=== PATIENT | male | born 1975 | race Caucasian/White ===

== ENCOUNTER 2016-08-01 13:51 | Emergency (ER) | payer OTHER ==
[~2016-08-01] VITALS: Ht 185.4 cm; Wt 136.7 kg
[2016-08-01 13:54] VITALS: TEMP 37.1; O2SAT 96; Ht 185.4 cm; Wt 136.7 kg
[2016-08-01] MEDS ORDERED: GLC/500 PO (14:10)
[2016-08-01] MEDS ORDERED: CEFD300C2 PO (14:35)
[2016-08-01] MEDS ORDERED: HYDR-5688 PO (14:35)
[2016-08-01] MEDS ORDERED: CEFTRIAXONE SOD 350MG/ML 1 GM VIAL IM ONE (14:45)
[2016-08-01 15:03] VITALS: BP 154/94; PULSE 94
--- NOTE | 2016-08-02 22:47 | EMERGENCY ROOM VISIT NOTE ---
History First contact with patient: 14:00 Chief Complaint: FACIAL PAIN/INJURY Stated Complaint: SWELLING TO FACE History of Present Illness The patient is a 41 year old male who presents to the Emergency Room with complaints of left-sided facial pain and swelling for the past few days. The patient believes the discomfort is coming from a left upper molar. He has an appointment with a dentist, but not for several weeks. The patient has not had fever or chills. No recent URI symptoms. He is not having swelling of his tongue or bleeding from the mouth. The patient has not had improvement with ibuprofen and Tylenol at home. He is a diabetic, does not have injury or trauma. Review of Systems More than 10 systems were reviewed and otherwise negative with the exception of history of present illness. Past Medical/Surgical History History of diabetes Family History No pertinent family history Social History Smoking Status: Former Smoker Housing Status: lives with family Current/Historical Medications Scheduled Cefdinir (Omnicef), 300 MG PO Q12H Metformin Hcl (Glucophage), 500 MG PO DAILY Scheduled PRN Hydrocodone/Acetaminophen 5MG/325MG ([place] 5MG/325MG), 1 TABLET PO Q6 PRN for Pain Allergies Coded Allergies: No Known Allergies (Unverified , 08/01/16) Physical Exam Vital Signs Date Time Temp Pulse Resp B/P Pulse Ox O2 Delivery O2 Flow Rate FiO2 08/01/16 15:03 94 20 154/94 08/01/16 13:54 37.1 99 18 162/110 96 Room Air Pain Rating (0-10): 4.0 Physical Exam VITALS: Vitals are noted on the nurse's note and reviewed by myself. Vital signs stable. GENERAL: Well-developed, well-nourished, white male, who is in no acute distress and resting comfortably. Patient is cooperative with the examination. HEAD: There is very slight edema of the left-sided face over the maxillary sinus distribution. There is mild tenderness to percussion in this area. No gross erythema. EARS: External ear normal. External auditory canals clear, tympanic membranes pearly adler without erythema or effusion bilaterally. EYES: Pupils equal round and reactive to light and accommodation. Conjunctivae without injection, sclerae without icterus. Extraocular movements intact. NOSE: Patent, turbinates without inflammation or discharge. MOUTH: Mucous membranes moist. Tonsils are not enlarged. Pharynx without erythema, blood, or exudate. Uvula midline. Airway patent. Dentition overall poor repair. No obvious abscess noted. No ludwigs. NECK: Supple without nuchal rigidity. No lymphadenopathy. No thyromegaly. Cervical spine is nontender. HEART: Regular rate and rhythm without murmurs gallops or rubs. LUNGS: Clear to auscultation bilaterally without wheezes, rales or rhonchi. No retractions or accessory muscle use. Medical Decision & Procedures Medications Administered Medications (Trade) Dose Ordered Sig/Janet Route Start Time Stop Time Status Last Admin Dose Admin Ceftriaxone Sodium (Rocephin Im) 1,000 mg NOW ONCE IM 08/01/16 14:45 08/01/16 14:46 DC 08/01/16 14:46 1,000 MG ED Course Physical exam and history were performed. Nursing notes and EMR were reviewed. Patient appears to have some swelling over the left side of his face for the past few days. On exam I am unsure if he has a distinct dental infection or possible acute sinusitis. If he has a dental infection it is almost certainly related to a left upper tooth. Regardless the patient will need antibiotics, and was given 1 g IM Rocephin. He will be transitioned to Omnicef. Will provide him a course of Vicodin for pain control. The patient should follow with his PCP and dentist for further care and management. He was otherwise invited back to the ER with any new, worsening, or concerning symptoms. The chart was completed utilizing [employer] Voice Recognition Software. Grammatical errors, random word insertions, pronoun errors, and incomplete sentences are an occasional consequence of this system due to software limitations, ambient noise, and hardware issues. Any formal questions or concerns about the content, text, or information contained within the body of this dictation should be directly addressed to the provider for clarification. . Medical Decision Differential diagnosis: Etiologies such as dental pain, sinusitis, Ludwigs, trench mouth, cellulitis, abscess, MRSA infection, DVT, necrotizing fasciitis, dermatitis, drug eruption, as well as others were entertained.. [place] Drug Monitoring Program Search Results: patient reviewed within database, no issues identified Impression Primary Impression: Swelling of left side of face Departure Information Dispostion Home / Self-Care Condition GOOD Prescriptions Cefdinir (OMNICEF) 300 Mg Cap 300 MG PO Q12H for 9 Days, #18 CAP Prov: Calvin Alonso PA-C 08/01/16 Hydrocodone/Acetaminophen 5MG/325MG (Deep [place] 5MG/325MG) Tab 1 TABLET PO Q6 Y for Pain, #12 TAB For Initial Treatment Prov: Calvin Alonso PA-C 08/01/16 Forms HOME CARE DOCUMENTATION FORM, IMPORTANT VISIT INFORMATION Patient Instructions My [facility] Additional Instructions You were seen and evaluated today on an emergency basis only. This is not a substitute for, or an effort to provide, complete comprehensive medical care. It is not possible to recognize and treat all injuries or illnesses in a single emergency department visit. For this reason it is recommended that you followup with Your dentist as scheduled for ongoing care. For baseline pain relief you may alternate ibuprofen and acetaminophen every 4 hours for pain control. Take 600 mg ibuprofen (Advil) and then 4 hours later take 1000 mg acetaminophen (Tylenol). Do not take more than 3000 mg acetaminophen in a single day. Deep Run (hydrocodone/acetaminophen) 5/325 mg every 6 hours as needed for worsening breakthrough pain. Do not drink or drive on [place]. This medication will likely make you tired. Do not take Deep [place] and Tylenol at the same time as both contain acetaminophen. Deep Run may cause constipation. You may wish to take an [id number] stool softener like Colace if this occurs. Take Omnicef 300 mg daily for the next 9 days. Start this medication tomorrow morning. You are welcome to return to the emergency department anytime with new, worsening, or concerning symptoms.
== END 2016-08-01 15:05 | disposition home or self-care (01) ==
LOC: C.EDB 13:53 → C.EDD 15:05
DX: R22.0 Localized swelling, mass and lump, head (principal); E11.9 Type 2 diabetes mellitus without complications; Z79.84 Long term (current) use of oral hypoglycemic drugs

== ENCOUNTER → 2016-08-29 | Outpatient (CLI) | payer OTHER ==
[~2016-08-29] MED LIST: GLC/500 PO; HYDR-5688 PO
[2016-08-29 14:53] LABS: HEMATOCRIT 41.2 % (42-52); MEAN CELL VOLUME 87.3 fL (80-100); MEAN CORPUSCULAR HEMOGLOBIN 29.7 pg (25-34); PLATELET COUNT 363 K/uL (130-400); RED BLOOD COUNT 4.72 M/uL (4.7-6.1); WHITE BLOOD COUNT 8.76 K/uL (4.8-10.8)
[2016-08-29 15:31] LABS: ALT/SGPT 26 U/L (12-78); AST/SGOT 15 U/L (15-37); BLOOD UREA NITROGEN 17 mg/dl (7-18); BUN/CREATININE RATIO 20.9 (10-20); CALCIUM 8.3 mg/dl (8.5-10.1); CARBON DIOXIDE 31 mmol/L (21-32); CHLORIDE 106 mmol/L (98-107); CREATININE 0.82 mg/dl (0.60-1.40); GLUCOSE 92 mg/dl (70-99); POTASSIUM 4.1 mmol/L (3.5-5.1); SODIUM 141 mmol/L (136-145)
[2016-08-29 15:33] LABS: ALB/GLOB RATIO 0.9 (0.9-2); ALKALINE PHOSPHATASE 91 U/L (45-117)
[2016-08-30 07:10] LABS: ESTIMATED AVERAGE GLUCOSE 126 mg/dl; HA1C FLAG Normal (Normal)
== END | disposition home or self-care (01) ==
LOC: C.LABBC 11:49
PROVIDERS: ATTEND Nurse Practitioner Adult Health
DX: R73.09 Other abnormal glucose (principal)

== ENCOUNTER 2017-05-16 15:57 | Emergency (ER) | payer OTHER ==
[~2017-05-16] VITALS: Ht 193 cm; Wt 138.0 kg
[~2017-05-16 15:57] MED LIST changes: -HYDR-5688 PO
[2017-05-16 15:59] VITALS: TEMP 37; Ht 193 cm; Wt 138.0 kg
[2017-05-16] MEDS ORDERED: VNTHFA/IN INH (16:09)
[2017-05-16 16:12] VITALS: O2SAT 96
--- NOTE | 2017-05-16 16:34 | EMERGENCY ROOM VISIT NOTE ---
History First contact with patient: 16:02 Chief Complaint: COUGH Stated Complaint: COUGHING, HEADACHE, LUNG PAIN WHEN COUGHING Nursing Triage Summary: Patient reports cough since . For the past 4 days patient has had pain in left side of his chest with his cough. Per patient :History of early stages of COPD. History of Present Illness The patient is a 42 year old male who presents to the Emergency Room with complaints of cough and pleuritic chest pain for 2 weeks Patient has a PMH significant of COPD, T2DM and tobacco use. He said that the symptoms began with a sore throat and progressed to runny nose, BUSH and cough. He also reports mild subjective fevers periodically over the past 2 weeks. His chest pain is nonexertional, nonradiating and only related to cough. He describes the pain as a pulling sensation between his ribs. Patient has been coughing up yellow sputum, but denies hemoptysis. He also denies leg swelling, recent immobility or h/o DVT or PE. No family history of clotting disorders. Denies history of allergies of asthma. Patient is a smoker. Reports attempting to quit. Review of Systems see below Constitutional: + fever, No chills, No sweats Respiratory: + cough, + sputum, + wheezing, No shortness of breath, No dyspnea on exertion, No hemoptysis Cardiovascular: + chest pain, No orthopnea, No edema, No palpitations Abdomen: No pain, No nausea, No vomiting, No diarrhea Past Medical/Surgical History Medical Problems: (1) COPD (chronic obstructive pulmonary disease) (2) Type 2 diabetes mellitus Social History Smoking Status: Current Some Day Smoker Housing Status: lives with family Current/Historical Medications Scheduled Amoxicillin (Amoxil), 1 CAP PO BID Metformin Hcl (Glucophage), 500 MG PO DAILY Scheduled PRN Albuterol Hfa (Ventolin Hfa), 2 PUFFS INH Q4H PRN for SOB/Wheezing Physical Exam Vital Signs Date Time Temp Pulse Resp B/P (MAP) Pulse Ox O2 Delivery O2 Flow Rate FiO2 05/16/17 16:13 96 05/16/17 16:12 96 Room Air 05/16/17 16:09 95 Room Air 05/16/17 15:59 37.0 101 20 161/132 96 Room Air Physical Exam see below General Appearance: WD/WN, no apparent distress Head: normocephalic, atraumatic Eyes: normal inspection, sclerae normal Neck: supple, no adenopathy Respiratory/Chest: chest non-tender, lungs clear, normal breath sounds, no respiratory distress, no accessory muscle use Cardiovascular: regular rate, rhythm, no edema, no gallop Extremities: no calf tenderness, no pedal edema Neurologic/Psych: alert, normal mood/affect, oriented x 3 Medical Decision & Procedures ED Course 1625 History and physical performed 1641 Order CXR, EKG 1655 Reviewed EKG 1700 Discharged patient Medical Decision 42 male comes into the ED with cough and pleuritic chest pain for 2 weeks Considering the following differential; Pneumonia, Pulmonary Embolism, Pneumothorax, ACS Ordered the following test; EKG, CXR Well's score of 0, low probability of PE. Chest pain is typical for pleuritis or strain from coughing. EKG was unremarkable, NSR, LVH CXR was unremarkable Treating the patient for sinusitis with Amoxicillin 500 mg BID Impression Primary Impression: Sinusitis Departure Information Dispostion Home / Self-Care Prescriptions Amoxicillin (AMOXIL) 500 Mg Cap 1 CAP PO BID for 10 Days, #20 CAP Prov: Kamari Magaña M.D. 05/16/17 Referrals Anna Merlos C.R.N.P. (PCP) Patient Instructions [facility]
--- NOTE | 2017-05-16 16:57 | DIAGNOSTIC IMAGING REPORT ---
CHEST 2 VIEWS ROUTINE CLINICAL HISTORY: Cough. COMPARISON STUDY: Chest radiograph August 20, 2006. FINDINGS: Lung volumes are normal. No pneumothorax or pleural effusion is identified. There is no evidence of pulmonary edema. Cardiac size is within normal limits. There is no consolidation to suggest pneumonia. IMPRESSION: No acute cardiopulmonary findings. Electronically signed by: Mike York M.D. 05/16/2017 4:55 PM Dictated Date/Time: 05/16/2017 4:54 PM
[2017-05-16] MEDS ORDERED: AMOX500C3 PO (17:05)
--- NOTE | 2017-05-16 17:12 | EMERGENCY ROOM VISIT NOTE ---
History Report prepared by Jaxon: Stephan Brannon Under the Supervision of: Dr. Jairo Stoddard M.D. First contact with patient: 16:02 Chief Complaint: COUGH Stated Complaint: COUGHING, HEADACHE, LUNG PAIN WHEN COUGHING History of Present Illness The patient is a 42 year old male who presents to the Emergency Room with complaints of a persistent cough beginning 1.5 weeks ago. The patient's cough produces phlegm. He also complains of left rib pain with coughing, runny nose, sinus pressure, and headache. He developed his chest pain four days ago. The patient's chest pain is not worsened with exertion. He only feels it when he coughs. He feels that he may have had a fever. He denies SOB, black or bloody stool, or bloody vomit. The patient did not have a flu vaccine this year. He has no history of blood clots. He notes that he works for a [employer]. The patient is a smoker. Source of History: patient Onset: 1.5 weeks ago Quality: other (productive cough) Timing: other (persistent) Associated Symptoms: + fevers (subjective), + headache, + chest pain (left rib pain with coughing), No SOB, No melena, No hematochezia Note: Additional symptoms: runny nose and sinus pressure. He denies any bloody vomit. Review of Systems See HPI for pertinent positives & negatives. A total of 10 systems reviewed and were otherwise negative. Past Medical & Surgical Medical Problems: (1) COPD (chronic obstructive pulmonary disease) (2) Type 2 diabetes mellitus Family History No pertinent family history stated. Social History Smoking Status: Current Some Day Smoker Housing Status: lives with family Current/Historical Medications Scheduled Amoxicillin (Amoxil), 1 CAP PO BID Metformin Hcl (Glucophage), 500 MG PO DAILY Scheduled PRN Albuterol Hfa (Ventolin Hfa), 2 PUFFS INH Q4H PRN for SOB/Wheezing Allergies Coded Allergies: No Known Allergies (Unverified , 05/16/17) Physical Exam Vital Signs Date Time Temp Pulse Resp B/P (MAP) Pulse Ox O2 Delivery O2 Flow Rate FiO2 05/16/17 16:13 96 05/16/17 16:12 96 Room Air 05/16/17 16:09 95 Room Air 05/16/17 15:59 37.0 101 20 161/132 96 Room Air Physical Exam Constitutional: Vital signs reviewed. Eyes: Pupils are equal round reactive to light. Conjunctiva are noninjected. ENT: Pharynx is clear without erythema or exudate. Mucous membranes are moist. Neck supple without meningeal signs. Respiratory: Clear to auscultation bilaterally. Breath sounds are equal bilaterally. Cardiovascular: Regular rate and rhythm. No rubs or gallops. GI: Soft, nondistended and nontender. Bowel sounds are present. Musculoskeletal: No peripheral edema. No lower extremity tenderness. Rib tenderness to the left lower ribs. Integumentary: No cyanosis. Neurological: The patient is awake and alert. No focal deficits. Psychiatric: Normal affect. Medical Decision & Procedures ER Provider Diagnostic Interpretation: Radiology results as stated below per my review and the radiologist's interpretation: CHEST 2 VIEWS ROUTINE FINDINGS: Lung volumes are normal. No pneumothorax or pleural effusion is identified. There is no evidence of pulmonary edema. Cardiac size is within normal limits. There is no consolidation to suggest pneumonia. IMPRESSION: No acute cardiopulmonary findings. Electronically signed by: Mike York M.D. 05/16/2017 4:55 PM ECG Indication: other (rib pain) Rate (beats per minute): 95 Rhythm: normal sinus Findings: no acute ischemic change, no ectopy, other (LVH) ED Course 1607: The patient was evaluated in room B9. A complete history and physical exam was performed. 1705: Upon reevaluation, the patient appeared to have improvement of his symptoms. I discussed tonight's findings with him. He verbalized agreement of the treatment plan. The patient was discharged home. Medical Decision This is a 42-year-old male who presents with rib pain and cough with sinus symptoms. Differential diagnosis includes bronchitis, pneumonia, pneumothorax, sinusitis, URI. I did perform a limited focused review of portions of the patient's old chart on the electronic medical record. The patient has had no recent pertinent visits to this hospital. I did evaluate the patient as noted above. The patient has reproducible rib tenderness with cough. He is also had sinus symptoms. I did order and personally review the patient's 12-lead EKG and chest x-ray as described above. The test results were discussed with the patient. He was discharged with a prescription for amoxicillin. Resident Physician Supervision Note: I did evaluate and examine this patient myself. I did guide management for the patient. I agree with the resident's (Dr. Magaña) assessment as discussed. Please see the resident's dictation for further details. Medication Reconcilliation Current Medication List: was personally reviewed by me Blood Pressure Screening Patient's blood pressure: Elevated blood pressure Blood pressure disposition: Referred to PCP Impression Primary Impression: Acute bronchitis Additional Impression: Sinusitis Scribe Attestation The scribe's documentation has been prepared under my direct and personally reviewed by me in its entirety. I confirm that the note above accurately reflects all work, treatment, procedures, and medical decision making performed by me. Departure Information Dispostion Home / Self-Care Prescriptions Amoxicillin (AMOXIL) 500 Mg Cap 1 CAP PO BID for 10 Days, #20 CAP Prov: Kamari Magaña M.D. 05/16/17 Referrals Anna Merlos C.R.N.P. (PCP) Forms HOME CARE DOCUMENTATION FORM, IMPORTANT VISIT INFORMATION Patient Instructions My [facility] Additional Instructions Mr. Breaux, You came to the emergency room with cough and chest pain. We did a EKG to evaluate your heart and we did a chest xray to look at your lungs. Both of these test were unremarkable. We are treating you for sinusitis with a antibiotic called Amoxicillin. Please follow up with your primary care physicain. If you have any severe symptoms; fever, cough, chest pain, please follow up sooner. Problem Qualifiers Primary Impression: Acute bronchitis Bronchitis organism: unspecified organism Qualified Codes: J20.9 - Acute bronchitis, unspecified Additional Impression: Sinusitis Sinusitis location: unspecified location Chronicity: unspecified Qualified Codes: J32.9 - Chronic sinusitis, unspecified
[2017-05-16 17:24] VITALS: BP 155/99; PULSE 93; O2SAT 94
== END 2017-05-16 17:26 | disposition home or self-care (01) ==
LOC: C.EDB 15:58
DX: J44.0 Chronic obstructive pulmonary disease with (acute) lower respiratory infection (principal); J32.9 Chronic sinusitis, unspecified; E11.9 Type 2 diabetes mellitus without complications; F17.210 Nicotine dependence, cigarettes, uncomplicated; Z79.84 Long term (current) use of oral hypoglycemic drugs

== ENCOUNTER → 2017-06-20 | Outpatient (CLI) | payer OTHER ==
[~2017-06-20] MED LIST changes: +VNTHFA/IN INH
[2017-06-20 16:56] LABS: BASO % 0.3 %; BASO ABS # 0.03 K/uL (0-0.2); EOS % 3.7 %; EOS ABS # 0.42 K/uL (0-0.5); HEMATOCRIT 41.9 % (42-52); HEMOGLOBIN 14.4 g/dL (14.0-18.0); IG# 0.02 K/uL (0.00-0.02); LYMPH % 34.2 %; LYMPH ABS # 3.92 K/uL (1.2-3.4); MEAN CELL VOLUME 89.3 fL (80-100); MEAN CORPUSCULAR HEMOGLOBIN 30.7 pg (25-34); MEAN CORPUSCULAR HGB CONC 34.4 g/dl (32-36); MONO % 6.5 %; MONO ABS # 0.75 K/uL (0.11-0.59); NEUT % 55.1 %; NEUT ABS # 6.32 K/uL (1.4-6.5); PLATELET COUNT 345 K/uL (130-400); RED CELL DISTRIBUTION WIDTH CV 12.9 % (11.5-14.5); RED CELL DISTRIBUTION WIDTH SD 41.7 fL (36.4-46.3); WHITE BLOOD COUNT 11.46 K/uL (4.8-10.8)
[2017-06-20 17:24] LABS: ALBUMIN 3.6 gm/dl (3.4-5.0); ALT/SGPT 28 U/L (12-78); BLOOD UREA NITROGEN 16 mg/dl (7-18); CALCIUM 8.4 mg/dl (8.5-10.1); CARBON DIOXIDE 27 mmol/L (21-32); CHOLESTEROL 189 mg/dl (0-200); CREATININE 0.85 mg/dl (0.60-1.40); GLUCOSE 90 mg/dl (70-99); SODIUM 137 mmol/L (136-145)
[2017-06-20 17:29] LABS: ALKALINE PHOSPHATASE 102 U/L (45-117); AST/SGOT 19 U/L (15-37); LDL CHOLESTEROL CALCULATED 88 mg/dl; TOTAL PROTEIN 7.8 gm/dl (6.4-8.2)
== END | disposition home or self-care (01) ==
LOC: C.LABBC 14:50
PROVIDERS: ATTEND Nurse Practitioner Adult Health
DX: Z00.00 Encounter for general adult medical examination without abnormal findings (principal); Z13.220 Encounter for screening for lipoid disorders; R73.03 Prediabetes

== ENCOUNTER 2017-09-23 19:58 | Emergency (ER) | payer OTHER ==
[~2017-09-23] VITALS: Ht 193 cm; Wt 137.2 kg
[2017-09-23 20:01] VITALS: TEMP 36.7; Ht 193 cm; Wt 137.2 kg
[2017-09-23] MEDS ORDERED: XYLOCAINE 1%/SOD BICARB 20 ML VIAL INFIL ONE (20:15)
[2017-09-23] MEDS ORDERED: LISI-461 PO (21:18)
[2017-09-23 21:21] VITALS: BP 157/93; PULSE 99; O2SAT 95
--- NOTE | 2017-09-24 15:50 | EMERGENCY ROOM VISIT NOTE ---
ED Visit Note First contact with patient: 20:06 Chief Complaint: Right hand laceration. History of Present Illness: Mr. Breaux is a 42-year-old white male who ambulates into the ED accompanied by his son complaining of lacerations to the right fingers. Patient reports approximately 1 hour before he arrived in the emergency department he was cutting a wire with a knife and sustained lacerations to the right thumb, of the right middle finger and the right ring finger. Prior to arrival at the hospital he did control bleeding but did not wash the wounds. Associated with his wound he reports he has a throbbing and stinging pain in these fingers. He rates his discomfort 4/10. His pain is nonradiating. His pain worsens with palpation. He has not identified any alleviating factors related to the pain. He has not taken any medication for pain prior to arrival at the hospital. Associated with his lacerations and pain he does report he has a numbness sensation to the distal ring finger. Review of Systems: As noted above in history of present illness. 8 body systems were reviewed and found to be negative as noted above. Past Medical History: Diabetes Current Medications: Glucophage, lisinopril, albuterol. Allergies to Medications: Patient denies. Social History: Patient is currently employed; he feels safe in his home environment; he denies tobacco and alcohol use. Tetanus Immunization Status: July 2016. Physical Examination: Vital Signs: Date Time Temp Pulse Resp B/P (MAP) Pulse Ox O2 Delivery O2 Flow Rate FiO2 09/23/17 21:21 99 157/93 95 09/23/17 20:01 36.7 114 20 151/101 96 Room Air GENERAL: 42-year-old male in mild distress due to pain, nontoxic-appearing, afebrile and hemodynamically stable. NEUROLOGICAL: Awake, alert and oriented to person, place and time. Answering questions appropriately and following commands. SKIN: Warm, dry and pink. Right Thumb: Over the lateral aspect of the distal femoral necks just lateral to the lateral nail fold patient has a subcentimeter superficial thickness laceration. No active bleeding. Right Middle Finger: Over the anterior, lateral and posterior aspect of the middle finger patient has a 3.4 cm full-thickness laceration starting over the middle phalanx and then extending distally to the distal femoral necks aspect and ending just superior to the fingernail. Minimal active bleeding. Right Ring Finger: Over the lateral aspect of the proximal phalange patient has a 2.2 cm full-thickness laceration. Minimal active bleeding. RIGHT HAND: Soft tissue injuries as noted above. No gross bony deformity. Patient able to flex and extend all MCP, PIP and interphalangeal joints against resistance. Throughout the hand the skin was warm and pink and capillary refill is brisk. He was able to distinguish light sensations to all dermatomes of the hand. ED Course: Patient is assessed as noted above. Patient's medication list was reviewed. Patient was offered pain medication and refused. Wound Repair: Complexity: Basic Verbal consent was obtained after the risks and benefits were explained. The skin was prepped with betadine and a sterile field set. Wound edges of the wound were anesthetized with a total of 3.2 ml buffered 1% lidocaine. The wounds were explored for foreign bodies and none found. Copious irrigation was performed using sterile saline. With direct pressure the bleeding subsided. Debridement was not performed. The wound edges were approximated using 5-0 Ethilon with a total of 11 simple interrupted sutures. Hemostasis and excellent approximation was achieved. Antibacterial ointment and a sterile dressing applied. Metal finger splint was applied. No complications and the patient tolerated the procedure well. Patient was educated about tonight's findings and instructed on his treatment plan; he verbalizes understanding and agreement with this plan. Clinical Impression: Lacerations of the other right fingers. Disposition: Patient discharged home in stable condition; prior to departure he was reassessed and subjectively reported he was feeling better and rated his discomfort 07/20 Plan: Comfort measures, wound care and signs of infection were discussed with the patient. Patient was encouraged to follow-up with PCP or return to the ED for signs of infection and/or suture removal in 10-12 days.
== END 2017-09-23 21:20 | disposition home or self-care (01) ==
LOC: C.EDB 19:59 → C.EDD 21:20
DX: S61.212A Laceration without foreign body of right middle finger without damage to nail, initial encounter (principal); S61.011A Laceration without foreign body of right thumb without damage to nail, initial encounter; S61.214A Laceration without foreign body of right ring finger without damage to nail, initial encounter; W26.0XXA Contact with knife, initial encounter; E11.9 Type 2 diabetes mellitus without complications; Z79.84 Long term (current) use of oral hypoglycemic drugs; Z79.899 Other long term (current) drug therapy

== ENCOUNTER 2017-10-04 09:33 | Emergency (ER) | payer OTHER ==
[~2017-10-04] VITALS: Ht 193 cm; Wt 135.0 kg
[~2017-10-04 09:33] MED LIST changes: +LISI-461 PO
[2017-10-04 09:39] VITALS: TEMP 36.6; O2SAT 98; Ht 193 cm; Wt 135.0 kg
--- NOTE | 2017-10-04 10:15 | EMERGENCY ROOM VISIT NOTE ---
ED Visit Note First contact with patient: 10:00 CHIEF COMPLAINT: Suture removal HISTORY OF PRESENTING ILLNESS: This 42-year-old male patient returns to the ED today for removal of sutures of the right middle and ring fingers that were placed 10 days ago. There has been no swelling, redness, or drainage from the wounds. The patient feels like the laceration is healing well. REVIEW OF SYSTEMS: Head: No headache, injury or neck pain. Skin: No rash, new lesions, or masses. General: No fever or chills, fatigue, loss of appetite , or significant recent weight gain or loss. PMH: The patient is healthy; there is no significant medical or surgical history. SOCIAL HISTORY: Patient lives at home. PHYSICAL EXAM: Vital Signs: Reviewed Nurse's notes. There are sutured wounds on the right middle and ring fingers that appear to be well healed with no signs of infection. There is no erythema, swelling, or tenderness. EMERGENCY DEPARTMENT COURSE: I examined the patient. The sutures were removed without any difficulty and there was no separation of the wound edges. The patient was discharged home in stable condition and ambulatory. Problem List Medical Problems: (1) COPD (chronic obstructive pulmonary disease) Status: Chronic (2) Type 2 diabetes mellitus Status: Chronic Current/Historical Medications Scheduled Lisinopril (Zestril), 10 MG PO DAILY Metformin Hcl (Glucophage), 500 MG PO BID Scheduled PRN Albuterol Hfa (Ventolin Hfa), 2 PUFFS INH Q4H PRN for SOB/Wheezing Allergies Coded Allergies: No Known Allergies (Unverified , 09/23/17) Vital Signs Date Time Temp Pulse Resp B/P (MAP) Pulse Ox O2 Delivery O2 Flow Rate FiO2 10/04/17 11:10 68 18 10/04/17 09:39 36.6 96 20 120/98 98 Room Air Departure Information Impression Primary Impression: Encounter for removal of sutures Dispostion Home / Self-Care Condition GOOD Referrals No Doctor, Assigned (PCP) Patient Instructions ED Wound Check Sutr Remove No Infec, [place] Additional Instructions You were seen in the emergency department today to have your sutures removed. You may wash any remaining crusts off of the wound today and resume your normal activities. As with all lacerations, there may be temporary or permanent nerve damage or scarring. Keep covered when in sun until sutures removed then SPF 50 or higher for one year. Vitamin E oil if desired two weeks after suture removal for reduction of scar. Follow-up with the primary care provider as needed.
[2017-10-04 11:10] VITALS: BP 122/82; PULSE 68
== END 2017-10-04 11:11 | disposition home or self-care (01) ==
LOC: C.EDB 09:35 → C.EDA 11:11
DX: S61.212D Laceration without foreign body of right middle finger without damage to nail, subsequent encounter (principal); S61.214D Laceration without foreign body of right ring finger without damage to nail, subsequent encounter; X58.XXXD Exposure to other specified factors, subsequent encounter; J44.9 Chronic obstructive pulmonary disease, unspecified; E11.9 Type 2 diabetes mellitus without complications; Z79.84 Long term (current) use of oral hypoglycemic drugs

== ENCOUNTER → 2018-01-23 | Outpatient (CLI) | payer OTHER ==
[~2018-01-23] MED LIST changes: -LISI-461 PO; +LISI10TA PO; +OMEG10007 PO
[2018-01-23 14:31] LABS: HEMOGLOBIN A1C 6.2 % (4.5-5.6)
== END | disposition home or self-care (01) ==
LOC: C.LABBC 10:15
PROVIDERS: ATTEND Neuromusculoskeletal Medicine & OMM
DX: R73.03 Prediabetes (principal)

== ENCOUNTER → 2018-01-28 | Day surgery (SDC) | payer OTHER ==
[2018-01-21 11:27] VITALS: Ht 193 cm; Wt 129.6 kg
[~2018-01-28] VITALS: Ht 193 cm; Wt 129.6 kg
[~2018-01-28] MED LIST changes: +ATROPINE SULFATE 0.1 MG/ML 5ML SYR IV PRN; +CYCLOPENTOLATE HCL 1% OP SOLN PER DROP CHARGE OPR SCH; +EpHEDrine SULFATE INJ 50 MG/ML AMP IV PRN; +GATIFLOXACIN OP SOLN PER DROP CHARGE OPR SCH; +KETOROLAC 0.5% OP SOLN PER DROP CHARGE OPR SCH; +LACTATED RINGER'S 1000ML 500 ML IV SCH; +PHENYLEPHRINE HCL 2.5% OP SOLN PER DROP CHARGE OPR SCH; +PROPARACAINE 0.5% OP SOLN PER DROP CHARGE OPR SCH; +SODIUM CHLORIDE 0.9% 500ML IV SCH; +TROPICAMIDE 1% OP SOLN PER DROP CHARGE OPR SCH
== END | disposition home or self-care (01) ==
LOC: EDSTATUS 07:00 → C.PAT 13:01
PROVIDERS: ATTEND Ophthalmology

== ENCOUNTER 2024-07-11 09:43 | Observation (INO) ==
--- NOTE | 2024-07-11 10:40 | Emergency Department Note ---
History of Present Illness General Chief complaint: Leg Injury/Pain Stated complaint: PAIN IN LT LEG Time Seen by Provider: 07/11/24 09:59 History of Present Illness Maximum Pain Intensity: 6 This 49-year-old male presents today for evaluation of his left leg. The patient states on Saturday evening he began having some medial ankle pain. He thought he rolled his ankle or stepped on it wrong. The ankle pain has increased over the last 2 days and now involves his inner lower leg. He woke this morning with inner thigh pain as well. Redness has developed on the inner leg and is now extending to the inner thigh. He denies any shortness of breath. No prior history of DVT or PE. He denies any history of cellulitis. The patient is a diabetic. He has had no treatment. He remains ambulatory but does limp secondary to the left leg pain. No trauma. No additional complaints. Home Medications Medication Instructions Recorded Confirmed Type CPAP Machine #1 ea 08/01/21 07/14/24 Rx omega 8-yru-dgy-fish oil 1,000 mg 1 cap PO DAILY #90 caps 08/24/21 07/14/24 Rx (120 mg-180 mg) capsule (Fish Oil) atorvastatin 10 mg tablet 10 mg PO QPM #90 tabs 05/04/24 07/14/24 Rx lisinopril 10 mg tablet 10 mg PO BID #180 tabs 05/04/24 07/14/24 Rx metformin 1,000 mg tablet 1,000 mg PO BID #180 tabs 05/04/24 07/14/24 Rx levofloxacin 500 mg tablet 500 mg PO DAILY #4 tabs 07/13/24 07/14/24 Rx albuterol sulfate 90 mcg/actuation 2 puff inhalation Q6H PRN 07/14/24 Rx aerosol inhaler Shortness Of Breath #18 grams Allergies Allergy/AdvReac Type Severity Reaction Status Date / Time No Known Drug Allergies Allergy Verified 07/14/24 12:26 Past Med/Surg History Problem List (Updated 07/16/24 @ 10:37 by Bryn Watts PA-C) Left leg cellulitis (Acute) Right knee pain Nocturnal hypoxemia Moderate obstructive sleep apnea Fatigue Loud snoring Type 2 diabetes mellitus (Chronic) COPD (chronic obstructive pulmonary disease) (Chronic) Medical History Obesity Tobacco dependence Hypertension Hyperlipidemia Lyme disease Diabetes mellitus, type 2 Chronic obstructive pulmonary disease Surgical History History of cataract surgery RIGHT History of tooth extraction Family History Grandfather Family history of diabetes mellitus Denies family history of Ovarian cancer Prostate cancer Myocardial infarction Breast cancer Colorectal cancer Social History Smoking Status: Current every day smoker Tobacco Type: Cigarettes Age Started Using Tobacco: 10; packs per day: 0.5; Cigarettes Per Day: 6-8 CIG DAILY; Second Hand Exposure: No; Do You Dip or Chew Tobacco: No; Hx Alcohol Use: No Hx Substance Use: No Preferred Language: Congolese Communication Ability: Effective Visual Impairment: No Limitations Hearing Ability: Normal 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 Beliefs That Will Affect Care: None marital status: Current Living Situation: Family and Boarding Home Current Living Situation Comment: Patient lives with son current occupational status: employed current occupation: [employer] How many Children do You have: 5 Feels Safe at Home: Yes Childhood Exposure to Second-Hand Smoke: Yes Diet: regular Diet Comment: regular caffeine: Yes during the past year weight has: increased > 10 lbs Dental Care, Regularly: No Physical Activity Frequency: 5-6 Times per Week Seatbelt Use: never Sunscreen Use: No Assistive Devices: None Review of Systems A total of 10 systems reviewed and were otherwise negative Physical Exam Vital Signs Vital Signs - 24 hr 07/11/24 09:52 Temperature 36.5 C Temperature Source Temporal Artery Scan Pulse Rate 102 H Respiratory Rate 21 Blood Pressure 151/104 H Blood Pressure Mean 119 Pulse Oximetry 94 Oxygen Delivery Method Room Air Sepsis Recent Fever Within 48 Hours No Sepsis New/Unexplained Change in Mental Status N/A Sepsis Action Taken by Nursing No Action Required General: Well-developed, well-nourished, obese middle-aged white male, in no acute distress. Laying on the bed. Alert and oriented. Skin: Warm and dry with good turgor. The patient has extensive dirt on his feet. He has redness on the inner aspect of his ankle extending across the inner gastroc to the inner thigh. Streak is approximately 5 cm in diameter. 2+ peripheral edema in the lower extremities. He has no open wounds on his foot or lower leg. Heart: Heart RRR. No MGR. Peripheral pulses are 2+. Lungs: Lungs are clear to auscultation. No crackles rhonchi or wheezing. Good air movement. The patient is able to take a deep breath. Abdomen: Morbidly obese. Abdomen was inspected, auscultated, and palpated. Bowel sounds present x 4. Soft, nontender to palpation. No hepato- splenomegaly. No masses noted. No rebound. Musculoskeletal: The patient has intact motor function to the lower extremities. Symmetric motion at the ankles, knees, and hips. He has no joint pain with motion of the ankles, knees, or hips. He describes some inner calf pain with motion of the left knee and ankle. Neurologic: Gross sensation is intact across the lower extremities by soft touch. Course Administered Medications Discontinued Medications Atorvastatin Calcium (Atorvastatin 10 Mg Tab) 10 mg PO QPM [facility] Stop: 08/10/24 20:59 Last Admin: 07/12/24 21:48 Dose: 10 mg Documented By: Admin: 07/11/24 21:11 Dose: 10 mg Documented By: PAULA Ceftriaxone Sodium (Rocephin) 2,000 mg in 50 mls @ 100 mls/hr IV NOW STA Stop: 07/11/24 12:34 Last Infusion: 07/11/24 13:22 Dose: Infused Documented By: Admin: 07/11/24 12:24 Dose: 100 mls/hr Documented By: MICHELA Cefepime HCl (Maxipime 2000mg) 2,000 mg in 20 mls @ 5 mls/min IV NOW STA; Protocol Stop: 07/11/24 12:36 Last Admin: 07/11/24 13:22 Dose: 5 mls/min Documented By: VANESSA Cefepime HCl (Maxipime 2000mg) 2,000 mg in 20 mls @ 5 mls/min IV Q8H [facility]; Protocol Stop: 07/18/24 20:59 Last Admin: 07/13/24 12:26 Dose: 5 mls/min Documented By: Admin: 07/13/24 05:03 Dose: 5 mls/min Documented By: Admin: 07/12/24 21:48 Dose: 5 mls/min Documented By: Admin: 07/12/24 12:06 Dose: 5 mls/min Documented By: Admin: 07/12/24 05:15 Dose: 5 mls/min Documented By: Admin: 07/11/24 21:11 Dose: 5 mls/min Documented By: PAULA Insulin Aspart (Insulin Aspart Per Unit Charge) 0 units SC ACHS KAREN Stop: 08/10/24 16:29 Last Admin: 07/13/24 12:26 Dose: 3 units Documented By: GENET Co-signed By: MONI Admin: 07/13/24 08:00 Dose: 3 units Documented By: GENET Co-signed By: JOHN Admin: 07/12/24 21:59 Dose: Not Given Documented By: Admin: 07/12/24 17:25 Dose: 2 units Documented By: SELVIN Co-signed By: JUAN RAMON Admin: 07/12/24 12:07 Dose: 2 units Documented By: SELVIN Co-signed By: DALIA Admin: 07/12/24 08:46 Dose: 2 units Documented By: SELVIN Co-signed By: DALIA Admin: 07/11/24 21:11 Dose: Not Given Documented By: Admin: 07/11/24 17:20 Dose: 4 units Documented By: SELVIN Co-signed By: JUAN RAMON Lisinopril (Lisinopril 10 Mg Tab) 10 mg PO BID [facility] Stop: 08/10/24 20:59 Last Admin: 07/13/24 07:56 Dose: 10 mg Documented By: Admin: 07/12/24 21:48 Dose: 10 mg Documented By: Admin: 07/12/24 08:46 Dose: 10 mg Documented By: Admin: 07/11/24 21:11 Dose: 10 mg Documented By: PAULA Medical Decision Making Differential Diagnosis DVT, cellulitis, lymphangitis, superficial burn, sepsis Medical Records Attestation: I reviewed the patient's medical records. Home Medications Current Medication List: was personally reviewed by me Laboratory Data CBC obtained this morning shows an elevated white count of 11.36. Normal H&H. Normal platelets. Slight elevation in neutrophils. Sed rate is elevated at 23. INR is normal at 1.0. Normal electrolytes. Normal BUN and creatinine. Normal LFTs. 07/13/24 05:47 07/12/24 05:49 Lab Results 07/11/24 07/11/24 07/11/24 Range/Units 10:31 11:52 12:28 WBC 11.36 H (4.8-10.8) K/ul RBC 4.87 (4.70-6.10) M/uL Hgb 14.2 (14.0-18.0) g/dl Hct 42.9 (42.0-52.0) % MCV 88.1 (80.0-100.0) fL MCH 29.2 (25.0-34.0) pg MCHC 33.1 (32.0-36.0) g/dL RDW Std Deviation 41.4 (36.4-46.3) fL RDW Coeff of [place]ez 12.8 (11.5-14.5) % Plt Count 360 (130-400) K/uL MPV 9.6 (9.4-12.4) fL Immature Gran % (Auto) 0.3 % Neut % (Auto) 65.7 % Lymph % (Auto) 23.3 % Duc[place]ne % (Auto) 9.2 % Eos % (Auto) 1.2 % Baso % (Auto) 0.3 % Neut # (Auto) 7.47 H (1.40-6.50) K/uL Lymph # (Auto) 2.65 (1.20-3.40) K/uL Duc[place]ne # (Auto) 1.04 H (0.11-0.59) K/uL Eos # (Auto) 0.14 (0.00-0.50) K/uL Baso # (Auto) 0.03 (0.00-0.20) K/uL Immature Gran # (Auto) 0.03 (0.01-0.20) K/uL ESR 23 H (0-20) mm/hr PT 10.7 (9.0-12.0) Seconds INR 1.0 (0.9-1.1) Sodium 138 (136-145) mmol/L Potassium 4.2 (3.5-5.1) mmol/L Chloride 106 (98-107) mmol/L Carbon Dioxide 27 (21-32) mmol/L Anion Gap 5 (3-11) BUN 13 (6-23) mg/dl Creatinine 0.81 (0.6-1.4) mg/dl Est Cr Clr Drug Dosing 170.5 ml/min eGFR 106.75 BUN/Creatinine Ratio 16.0 (10-20) Glucose 103 H (70-99(Fasting)) mg/dl Estimat Average Glucose 143 mg/dl Hemoglobin A1c 6.6 H (4.5-5.6) % Calcium 7.9 L (8.6-10.3) mg/dl Total Bilirubin 1.0 (0.2-1.0) mg/dl Direct Bilirubin TNP 0.1 AST 15 (13-39) U/L ALT 17 (7-52) U/L Alkaline Phosphatase 76 (34-104) U/L C-Reactive Protein 2.88 H (0-0.5) mg/dl Total Protein 7.0 (6.0-8.3) gm/dl Albumin 3.7 (3.4-5.0) gm/dl Globulin 3.3 (2.5-4.0) gm/dl Albumin/Globulin Ratio 1.1 (0.9-2) Imaging Data My Impression: Venous Doppler ultrasound of the left lower extremity was obtained today. It was interpreted by me and read by radiology. It is negative for DVT. Blood Pressure Blood Pressure Findings: Normal blood pressure MDM Narrative The patient was evaluated in room C5. Conservative care measures were discussed. IV was established. Labs were obtained. He was found to have a mildly elevated white count. Venous Doppler ultrasound of the left lower extremity was obtained to rule out DVT. This was unremarkable. Given his elevation in white count, redness, and tenderness, I suspect he has cellulitis with lymphangitis. Given his body habitus and difficulty preparing for himself, admission is recommended. The patient is agreeable. Blood cultures were obtained and then the patient was given Rocephin 2 g IV to start antibiotic treatment. Dr. Bustamante from the hospitalist service was consulted. Please see his dictation for final management. The patient remained stable while in the ED. Care plan was discussed at length with attending Dr. Macdonald. Impression & Plan Left leg cellulitis Discharge Plan Visit Data Chief Complaint: Leg Injury/Pain Stated Complaint: PAIN IN LT LEG ED Provider: Bridgett Macdonald ED Midlevel Provider: Bryn Watts Discharge Problem: Left leg cellulitis Patient Disposition: Admitted As Inpatient Discharge Instructions Interventions: ED Discharge Assessment Last Done: 07/11/24 14:32
[2024-07-11 11:03] LABS: Basophils # (auto) 0.03 K/uL (0.00-0.20); Basophils % (auto) 0.3 %; Eosinophils # (auto) 0.14 K/uL (0.00-0.50); Eosinophils % (auto) 1.2 %; Hematocrit (blood only) 42.9 % (42.0-52.0); Hemoglobin 14.2 g/dl (14.0-18.0); Immature Granulocytes # (auto) 0.03 K/uL (0.01-0.20); Immature Granulocytes % (auto) 0.3 %; Lymphocytes # (auto) 2.65 K/uL (1.20-3.40); Lymphocytes % (auto) 23.3 %; Mean Corpuscular Hemoglobin 29.2 pg (25.0-34.0); Mean Corpuscular Hgb Conc 33.1 g/dL (32.0-36.0); Mean Corpuscular Volume 88.1 fL (80.0-100.0); Mean Platelet Volume 9.6 fL (9.4-12.4); Monocytes # (auto) 1.04 K/uL (0.11-0.59); Monocytes % (auto) 9.2 %; Neutrophils # (auto) 7.47 K/uL (1.40-6.50); Neutrophils % (auto) 65.7 %; Platelet Count 360 K/uL (130-400); RDW Coefficient of Variation 12.8 % (11.5-14.5); RDW Standard Deviation 41.4 fL (36.4-46.3); Red Blood Count 4.87 M/uL (4.70-6.10); White Blood Count 11.36 K/ul (4.8-10.8)
[2024-07-11 11:07] LABS: Alanine Aminotransferase 17 U/L (7-52); Albumin Globulin Ratio 1.1 (0.9-2); Albumin Level 3.7 gm/dl (3.4-5.0); Alkaline Phosphatase 76 U/L (34-104); Anion Gap 5 (3-11); Aspartate Aminotransferase 15 U/L (13-39); Blood Urea Nitrogen 13 mg/dl (6-23); Calcium 7.9 mg/dl (8.6-10.3); Carbon Dioxide 27 mmol/L (21-32); Chloride 106 mmol/L (98-107); Creatinine Clr Calc Pharmacy 170.5 ml/min; Globulin 3.3 gm/dl (2.5-4.0); Glucose 103 mg/dl (70-99(Fasting)); Potassium 4.2 mmol/L (3.5-5.1); Sodium 138 mmol/L (136-145)
[2024-07-11 11:10] LABS: Prothrombin Time 10.7 Seconds (9.0-12.0)
--- NOTE | 2024-07-11 11:22 | Ultrasound Report ---
EXAM: US Duplex Left Lower Extremity Veins INDICATION: Pain and tenderness. TECHNIQUE: Real-time duplex ultrasound scan of the left lower extremity veins integrating B-mode two-dimensional vascular structure, Doppler spectral analysis, color flow Doppler imaging and compression. COMPARISON: No relevant prior studies available. FINDINGS: Deep veins: No DVT in the visualized common femoral, femoral or popliteal veins. The veins demonstrate normal color flow, are normally compressible, with normal phasic flow and/or augmentation response. Superficial veins: No abnormality noted. No thrombus in the visualized great saphenous vein. Soft tissues: No abnormality noted. IMPRESSION: No deep venous thrombosis of the left lower extremity. ACT 112: Negative or not required by law. Electronically signed by Noy Rios 07-11-2024 11:22 AM
[2024-07-11] MEDS: cefTRIAXone SODIUM 2,000 MG/50 ML BAG IV STA (12:24)
--- NOTE | 2024-07-11 12:45 | History & Physical Report ---
Date of Service July 11, 2024 Assessment & Plan (1) Left leg cellulitis: Plan: Assessment: 1. Acute left lower extremity cellulitis. Fairly extensive. Blood cultures are obtained. The patient had IV Rocephin in the ER. Will escalate him to cefepime to cover Pseudomonas given his history of diabetes mellitus. We will do an MRSA screen. If positive will add vancomycin to his coverage. 2. Diabetes mellitus type 2 [id number]. Insulin sliding scales been ordered. Hemoglobin A1c in the a.m. 3. Obstructive sleep apnea. Patient does not know his CPAP settings. He does not have his home unit. Will order CPAP and protocol. 4. COPD without acute exacerbation. 5. Hypertension. Continue home medications. 6. Dyslipidemia continue home statin therapy. 7. Morbid obesity. 8. Mild leukocytosis. Repeat CBC in the a.m. Plan: As discussed above. Please refer to orders for further planning. We anticipate approximately 48 hours of IV antibiotic therapy if he improves he can be safely switched over to oral therapy and discharged home to complete course. History of Present Illness Chief Complaint: Left foot ankle and leg pain. 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 He started getting ankle discomfort in the left foot ankle region earlier in the week. This is progressed to his medial lower leg and now his upper medial leg. It was associated with erythema and pain. He presented the ER for further evaluation and treatment. In the ER left lower extremity ultrasound was negative for DVT. White count was mildly elevated. The patient received blood cultures. He also received 2 g of IV Rocephin. We are called admit the patient for further evaluation and treatment of acute cellulitis in a diabetic patient. Given his history of diabetes mellitus we will place the patient on cefepime to cover Pseudomonas. In addition we will do an MRSA screen. If positive, we will add vancomycin to the cefepime. Allergies Allergy/AdvReac Type Severity Reaction Status Date / Time No Known Drug Allergies Allergy Verified 05/27/24 08:20 Home Medications Medication Instructions Recorded Confirmed Type CPAP Machine #1 ea 08/01/21 05/27/24 Rx omega 1-rzw-tpd-fish oil 1,000 mg 1 cap PO DAILY #90 caps 08/24/21 07/11/24 Rx (120 mg-180 mg) capsule (Fish Oil) albuterol sulfate 90 mcg/actuation 2 puff inhalation Q6H PRN 04/23/22 07/11/24 Rx aerosol inhaler Shortness Of Breath #18 grams atorvastatin 10 mg tablet 10 mg PO QPM #90 tabs 05/04/24 07/11/24 Rx lisinopril 10 mg tablet 10 mg PO BID #180 tabs 05/04/24 07/11/24 Rx metformin 1,000 mg tablet 1,000 mg PO BID #180 tabs 05/04/24 07/11/24 Rx Past Med/Surg History Problem List (Updated 07/11/24 @ 12:46 by Alcides Mack, PhD, DO) Left leg cellulitis Right knee pain Nocturnal hypoxemia Moderate obstructive sleep apnea Fatigue Loud snoring Type 2 diabetes mellitus (Chronic) COPD (chronic obstructive pulmonary disease) (Chronic) Medical History (Updated 07/11/24 @ 12:46 by Alicdes Mack, PhD, DO) Obesity Tobacco dependence Hypertension Hyperlipidemia Lyme disease Diabetes mellitus, type 2 Chronic obstructive pulmonary disease Surgical History History of cataract surgery RIGHT History of tooth extraction Family History Grandfather Family history of diabetes mellitus Denies family history of Ovarian cancer Prostate cancer Myocardial infarction Breast cancer Colorectal cancer Social History Smoking Status: Current every day smoker Tobacco Type: Cigarettes Age Started Using Tobacco: 10; packs per day: 0.5; Cigarettes Per Day: 6-8 CIG DAILY; Second Hand Exposure: No; Do You Dip or Chew Tobacco: No; Hx Alcohol Use: No Hx Substance Use: No Preferred Language: Urdu Communication Ability: Effective Visual Impairment: No Limitations Hearing Ability: Normal 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 Beliefs That Will Affect Care: None marital status: Current Living Situation: Family Current Living Situation Comment: Patient lives with son current occupational status: employed current occupation: [employer]ing [employer] How many Children do You have: 5 Feels Safe at Home: Yes Childhood Exposure to Second-Hand Smoke: Yes Diet: regular Diet Comment: regular caffeine: Yes during the past year weight has: increased > 10 lbs Dental Care, Regularly: No Physical Activity Frequency: 5-6 Times per Week Seatbelt Use: never Sunscreen Use: No Assistive Devices: Denture - Upper, Denture - Lower and Glasses Review of Systems 2 Review of Systems: A 10 point review of system was obtained and unless otherwise stated here or in history of present illness are negative and noncontributory to chief complaint. Physical Exam 2 Physical Exam: In General: In general pleasant 49-year-old male who is alert and oriented x 3 time of my examination. He appears to be in no acute distress he did state that the ultrasound was uncomfortable with his leg pain that was his only complaint. HEENT: Normocephalic atraumatic pupils are equal round and reactive to light bilaterally. No scleral icterus no conjunctival injection external auditory canals are patent septum is in the midline nose is without discharge oral mucosa is pink and moist without lesion. NECK: Supple no rigidity no lymphadenopathy no thyromegaly no carotid bruits no JVD no masses. HEART: Regular rate and rhythm I do not appreciate any ectopy or rub. No murmur. LUNGS: Clear to auscultation bilaterally and anteriorly with no evidence of adventitious sounds/wheezes rales or rhonchi. ABDOMEN: Obese, soft nontender, no rebound, no peritoneal signs, positive bowel sounds-remaining abdominal exam somewhat equivocal given his body habitus but no gross appreciable organomegaly. EXTREMITIES: Intact. There is mild edema of the left lower extremity which is fairly diffuse extending from the ankle up to the upper medial thigh. There is associated erythema with lymphangitic streaking. It is warm to the touch and painful to touch consistent with acute cellulitis/lymphangitis. As pictured below. NEUROLOGICAL: Cranial nerves II through XII are grossly intact with no focal deficit elicited upon examination. No tremor. Results & Data Results & Data Vital Signs (Past 12 Hours) Vital Signs Temp Pulse Pulse Resp BP BP Pulse Ox 07/11/24 12:34 88 18 130/88 97 07/11/24 09:52 36.5 C 102 H 21 151/104 H 94 O2 Del Method 07/11/24 12:34 Room Air 07/11/24 09:52 Room Air Code Status & VTE Plan Code Status Full code: I personally discussed with patient today at the bedside. PG Care Time/CCT Total # of Minutes Spent Total Time Spent with Patient: Total time spent is greater than 50% in coordination of care (as documented) at patient's floor/unit and/or counseling patient: Coding Level of Care Code 51757 INT INP/OBS CARE 3/75MIN Diagnoses Left leg cellulitis L03.116
[2024-07-11] MEDS: CEFEPIME 2000MG 2,000 MG/20 ML SYR IV STA (13:22)
[2024-07-11] MEDS ORDERED: CARBOHYDRATES FOR HYPOGLYCEMIA PO PRN (14:40)
[2024-07-11] MEDS ORDERED: DEXTROSE 50% 50 ML SYRINGE IV PRN (14:40)
[2024-07-11] MEDS ORDERED: ALBUTEROL HFA 8 GM INHALER INH PRN (14:40)
[2024-07-11] MEDS ORDERED: MELATONIN 3 MG TAB PO PRN (14:40)
[2024-07-11] MEDS ORDERED: GLUCOSE 10 TAB/TUBE PO PRN (14:40)
[2024-07-11] MEDS ORDERED: GLUCAGON FOR INJ 1 MG VIAL SQ PRN (14:40)
[2024-07-11] MEDS ORDERED: GLUCOSE 40% GEL 15 GM TUBE PO PRN (14:40)
[2024-07-11] MEDS ORDERED: ACETAMINOPHEN 325 MG TAB PO PRN (14:40)
[2024-07-11] MEDS: INSULIN ASPART PER UNIT CHARGE SC SCH (17:20)
[2024-07-11] MEDS: lisinopril 10 MG TAB PO SCH (21:11)
[2024-07-11] MEDS: ATORVASTATIN 10 MG TAB PO SCH (21:11)
[2024-07-11] MEDS: CEFEPIME 2000MG 2,000 MG/20 ML SYR IV SCH (21:11)
[2024-07-12 06:24] LABS: Basophils # (auto) 0.03 K/uL (0.00-0.20); Basophils % (auto) 0.3 %; Eosinophils # (auto) 0.18 K/uL (0.00-0.50); Eosinophils % (auto) 1.5 %; Hematocrit (blood only) 40.3 % (42.0-52.0); Hemoglobin 13.5 g/dl (14.0-18.0); Immature Granulocytes # (auto) 0.07 K/uL (0.01-0.20); Immature Granulocytes % (auto) 0.6 %; Lymphocytes # (auto) 2.84 K/uL (1.20-3.40); Lymphocytes % (auto) 24.2 %; Mean Corpuscular Hemoglobin 29.5 pg (25.0-34.0); Mean Corpuscular Hgb Conc 33.5 g/dL (32.0-36.0); Mean Platelet Volume 9.6 fL (9.4-12.4); Monocytes # (auto) 1.09 K/uL (0.11-0.59); Monocytes % (auto) 9.3 %; Neutrophils # (auto) 7.52 K/uL (1.40-6.50); Neutrophils % (auto) 64.1 %; Platelet Count 383 K/uL (130-400); RDW Coefficient of Variation 12.9 % (11.5-14.5); RDW Standard Deviation 41.5 fL (36.4-46.3); Red Blood Count 4.58 M/uL (4.70-6.10); White Blood Count 11.73 K/ul (4.8-10.8)
[2024-07-12 06:39] LABS: C Reactive Protein 3.6 mg/dl (0-0.5); Calcium 8.5 mg/dl (8.6-10.3); Creatinine Clr Calc Pharmacy 184.1 ml/min; Potassium 4.3 mmol/L (3.5-5.1)
--- NOTE | 2024-07-12 11:52 | Hospitalist Progress Note ---
Date of Service July 12, 2024 Assessment & Plan (1) Left leg cellulitis: (2) Type 2 diabetes mellitus: (3) Moderate obstructive sleep apnea: (4) COPD (chronic obstructive pulmonary disease): (5) Hypertension: (6) Hyperlipidemia: Plan 49-year-old male with past medical history of COPD, DIANE, DM2, HLD, HTN presented with left lower extremity cellulitis that began on Saturday 07/08. Cellulitis infection on admission was fairly extensive, with lymphangitic streaking extending to left thigh. Blood cultures were obtained in ED, no growth to date. He was started on cefepime to cover Pseudomonas given his history of diabetes mellitus. Anticipate approximately 48 hours of IV antibiotic therapy then can be downgraded to oral therapy for completion of treatment and discharged home. #Acute left lower extremity cellulitis Continue IV cefepime 2 g Q8H CRP increasing at 3.60, continue to trend Clinically improving with erythema reduced from previously marked borders, less tenderness Blood cultures negative x 24 hours Anticipate discharge home 07/13/24 with oral antibiotics #Diabetes mellitus type 2 Home regimen of metformin 1000 mg twice daily Continue insulin sliding scales while inpatient A1c pending, unfortunately machine currently down in the hospital #DIANE/COPD/class III obesity Continue CPAP HS with protocol settings No acute COPD exacerbation currently #Hypertension Continue lisinopril 10 mg twice daily #Dyslipidemia Continue atorvastatin 10 mg QPM Dispo: Continue inpatient stay for further IV antibiotics, anticipate discharge home 07/13/2024 with oral antibiotics to complete treatment. Admission and Anticipated Discharge Date Admission Date: July 11, 2024 Supervising Physician Co-Signing Physician Notes Attending Attestation - Chart reviewed, care plan d/w WILNER Santana. I agree w/ the jackson components of her documentation. Bassam Leyva MD Subjective Patient seen and evaluated at bedside. He reports feeling much better compared to yesterday. He notes that his leg still feels "tight" but the pain has subsided. He believes the swelling is about the same as yesterday, but thinks the redness looks improved. He stated his LLE began bothering him on Saturday07/08/24 and worsened until presentation to ED. He denies any nausea, abdominal discomfort, diarrhea, headache, chest pain, SOB. He is hopeful for discharge tomorrow as he and his son both have medical appointments on Saturday07/14/24. Physical Exam Physical Exam: General: No acute distress, nondiaphoretic, well-developed, class 3 obesity. Cardiac: Regular rate and rhythm without murmurs gallops or rubs. Pulm: Clear to auscultation bilaterally without wheezes, rales or rhonchi. No respiratory distress. 92% on room air. Abdominal: Soft, nontender, distention secondary to body habitus. Bowel sounds present. Neuro: A&O x3. No focal neurological deficits. LLE: Erythema reduced from previously marked borders; now extended to mid-calf, no lymphangitic streaking appreciated. Warm to touch. No weeping or discharge noted. Plantar surface of feet and toes dirty. Results & Data Results & Data Vital Signs (Past 12 Hours) Vital Signs Temp Pulse Resp BP Pulse Ox O2 Del Method 07/12/24 08:33 98.2 F 86 14 123/78 92 Room Air 07/12/24 07:19 98.2 F 98 H 18 113/73 96 Room Air Laboratory Results Reviewed CBC with differential Reviewed BMP, CRP Diagnostic Findings Reviewed venous doppler PG Care Time/CCT Total # of Minutes Spent Total Time Spent with Patient: Total time spent is greater than 50% in coordination of care (as documented) at patient's floor/unit and/or counseling patient: Coding Level of Care Code 93664 SUB INP/OBS CARE MIN Diagnoses Left leg cellulitis L03.116 Type 2 diabetes mellitus E11.9 Moderate obstructive sleep apnea G47.33 COPD (chronic obstructive pulmonary disease) J44.9 Hypertension I10 Hyperlipidemia E78.5
[2024-07-13 06:06] LABS: Hematocrit (blood only) 39.6 % (42.0-52.0); Mean Corpuscular Hgb Conc 32.8 g/dL (32.0-36.0); Mean Corpuscular Volume 88.4 fL (80.0-100.0); Mean Platelet Volume 9.4 fL (9.4-12.4); Platelet Count 344 K/uL (130-400); RDW Coefficient of Variation 12.7 % (11.5-14.5); RDW Standard Deviation 41.1 fL (36.4-46.3); Red Blood Count 4.48 M/uL (4.70-6.10); White Blood Count 11.94 K/ul (4.8-10.8)
[2024-07-13 07:31] VITALS: BP 114/81; PULSE 96; RESP 16; TEMP 98.6; O2SAT 93
--- NOTE | 2024-07-13 17:41 | Discharge Summary ---
Discharge Summary Date of Service July 13, 2024 Principal Dx & Hospital Course #1 = Principal Diagnosis (1) Left leg cellulitis: (2) Type 2 diabetes mellitus: (3) Moderate obstructive sleep apnea: (4) COPD (chronic obstructive pulmonary disease): (5) Hypertension: (6) Hyperlipidemia: Plan 49-year-old male with past medical history of COPD, DIANE, DM2, HLD, HTN presented with left lower extremity cellulitis that began on Saturday 07/08. Cellulitis infection on admission was fairly extensive, with lymphangitic streaking extending to left thigh. Blood cultures were obtained in ED, no growth to date. He was started on cefepime to cover Pseudomonas given his history of diabetes mellitus. Significantly improved after 48 hours of IV antibiotics, discharged on oral antibiotics. #Acute left lower extremity cellulitis Treated with IV cefepime 2 g Q8H x 48 hours Discharged on Levaquin 500 mg daily through 07/18/2024 Blood cultures negative x 48 hours #Diabetes mellitus type 2 Home regimen of metformin 1000 mg twice daily Continue insulin sliding scales while inpatient A1c pending, unfortunately machine currently down in the hospital #DIANE/COPD/class III obesity Continue CPAP HS with protocol settings No acute COPD exacerbation currently #Hypertension Continue lisinopril 10 mg twice daily #Dyslipidemia Continue atorvastatin 10 mg QPM Dispo: Continue inpatient stay for further IV antibiotics, anticipate discharge home 07/13/2024 with oral antibiotics to complete treatment. 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 He started getting ankle discomfort in the left foot ankle region earlier in the week. This is progressed to his medial lower leg and now his upper medial leg. It was associated with erythema and pain. He presented the ER for further evaluation and treatment. In the ER left lower extremity ultrasound was negative for DVT. White count was mildly elevated. The patient received blood cultures. He also received 2 g of IV Rocephin. We are called admit the patient for further evaluation and treatment of acute cellulitis in a diabetic patient. Given his history of diabetes mellitus we will place the patient on cefepime to cover Pseudomonas. In addition we will do an MRSA screen. If positive, we will add vancomycin to the cefepime. Discharge Exam General: No acute distress, nondiaphoretic, well-developed, class 3 obesity. Cardiac: Regular rate and rhythm without murmurs gallops or rubs. Pulm: Clear to auscultation bilaterally without wheezes, rales or rhonchi. No respiratory distress. 92% on room air. Abdominal: Soft, nontender, distention secondary to body habitus. Bowel sounds present. Neuro: A&O x3. No focal neurological deficits. LLE: Erythema nearly resolved, only minimal swelling present. No weeping or discharge noted. Plantar surface of feet and toes dirty. Discharge Plan Discharge Items Patient Disposition: Home - Self-Care Reason For Visit: CELLULITIS,LYMPHANGITIS Discharge Diagnosis: Cellulitis, improved Lymphangitisresolved Activity: Resume your previous activity Non-emergency contact: Primary Care Provider Call non-emergency contact if: you have any medication questions, your symptoms worsen and you have a fever Follow-up/Referrals: Fidel Breaux, [Primary Care Provider] - 07/20/24 11:00 am (Follow-up in 1-2 weeks) Diet: Carb Consistent or DM2 Addtl Attending Provider Instructions: Mr. Breaux, Romain were admitted to the hospital due to a cellulitis infection. Cellulitis is an infection of the skin/soft tissues caused by bacteria. Bacteria can enter the body through broken skin; this can happen with a cut, scratch, or insect bite. You have been treated in the hospital with IV antibiotics, and will be discharged with oral antibiotics to continue taking at home. This prescription was sent to the [facility] pharmacy in [facility]. Upon discharge from the hospital: * Take Levaquin (oral antibiotic) once daily x 4 additional days, starting on 07/14/2024. Take this antibiotic as directed until it is gone. Take it even if you feel better. It treats the infection and prevents it from returning. Not taking all of the medicine can make future infections harder to treat. As we discussed, Levaquin has increased risk of tendinitis/tendon rupture. Please be cautious with activity and refrain from excessive activity (basketbal l, skiing, running, etc.) while taking Levaquin. * Continue home medications as prescribed. * Follow-up with your PCP in 1-2 weeks. Please return to the hospital if you experience any of the following: Fever of 100.5 F or higher, trouble or pain with moving the joints above or below the infected area, discharge or pus draining from the infected area, pain that gets worse in or around the infected area, redness that gets worse and around the infected area, shaking chills, worsened swelling of the infected area, persistent vomiting, lightheadedness, dizziness, passing out, shortness of breath, difficulty breathing, or chest pain. Pending Studies at Discharge: Yes Studies:: Blood cultures - negative>24 hours Stand-Alone Forms: [facility], Smoking Cessation Medications and DC Order Prescriptions: New levofloxacin 500 mg tablet 500 mg PO DAILY Qty: 4 0RF Continued omega 0-jxu-ysl-fish oil [Fish Oil] 1,000 mg (120 mg-180 mg) capsule 1 cap PO DAILY Qty: 90 1RF (DME) CPAP Machine Misc See Rx Instructions .MEDSUPPLY Qty: 1 0RF Rx Instructions: CPAP 10 cm water pressure C flex #2 with heated humidification, tubing, and supplies. JOSIAH" 99+ years. atorvastatin 10 mg tablet 10 mg PO QPM Qty: 90 3RF lisinopril 10 mg tablet 10 mg PO BID Qty: 180 1RF metformin 1,000 mg tablet 1,000 mg PO BID Qty: 180 1RF No Action albuterol sulfate 90 mcg/actuation HFA aerosol inhaler 2 puff INHALATION Q6H PRN (Reason: Shortness Of Breath) Qty: 18 3RF Discharge Orders: Discharge Order (Routine); Ordered 07/13/24 Ordered By: Savi Flores/Other Patient Handouts: Cellulitis Dc, ED Cellulitis Admission Data Admit Date/Time: 07/11/24 12:36 Attending Provider: Bassam Leyva Admit Provider: Alcides Mack Primary Care Provider: Fidel Breaux Other Providers: Alcides Mack Other Interventions: Discharge Summary Assessment (RN) Last Done: 07/13/24 12:43 Hospital Stay Data Consultations 07/11/24 12:46 ED Decision to Admit Stat Diagnostic Imagining Performed 07/11/24 10:09 US leg [US venous doppler LE LT] Stat Pending Results Patient Have Any Pending Studies at Discharge: Yes Discharge Instructions Given to Patient (Per Discharging Provider) Mr. Breaux, Romain were admitted to the hospital due to a cellulitis infection. Cellulitis is an infection of the skin/soft tissues caused by bacteria. Bacteria can enter the body through broken skin; this can happen with a cut, scratch, or insect bite. You have been treated in the hospital with IV antibiotics, and will be discharged with oral antibiotics to continue taking at home. This prescription was sent to the [facility] pharmacy in [facility] in [place]. Upon discharge from the hospital: * Take Levaquin (oral antibiotic) once daily x 4 additional days, starting on 07/14/2024. Take this antibiotic as directed until it is gone. Take it even if you feel better. It treats the infection and prevents it from returning. Not taking all of the medicine can make future infections harder to treat. As we discussed, Levaquin has increased risk of tendinitis/tendon rupture. Please be cautious with activity and refrain from excessive activity (basketball, skiing, running, etc.) while taking Levaquin. * Continue home medications as prescribed. * Follow-up with your PCP in 1-2 weeks. Please return to the hospital if you experience any of the following: Fever of 100.5 F or higher, trouble or pain with moving the joints above or below the infected area, discharge or pus draining from the infected area, pain that gets worse in or around the infected area, redness that gets worse and around the infected area, shaking chills, worsened swelling of the infected area, persistent vomiting, lightheadedness, dizziness, passing out, shortness of breath, difficulty breathing, or chest pain. Supervising Physician Co-Signing Physician Notes Attending Attestation and Discharge Note: Chart reviewed, discharge care plan d/w WILNER Santana. I agree w/ the jackson components of her discharge documentation. Of note - I did not perform a bedside visit or perform a physical exam on day of discharge. 49yo male with T2DM, COPD, DIANE, HTN. Patient presented with LLE cellulitis. Had associated lymphangitic streaking to the left thigh. Received IV cefepime while here with clinical improvement; he did not receive MRSA coverage. Blood cx's were negative. LLE venous duplex study was negative for DVT. He will complete a course of PO levaquin upon discharge home. All other medical problems remained stable while here. Bassam Leyva MD Total Time Total Time Spent Total Time Spent (In Minutes): Greater than 30 minutes spent completing this discharge process including direct patient care, medication reconciliation, documentation, review of labs and images, and coordination of care. Coding Level of Care Code 38439 INP/OBS DISCH >30 MIN Diagnoses Left leg cellulitis L03.116 Type 2 diabetes mellitus E11.9 Moderate obstructive sleep apnea G47.33 COPD (chronic obstructive pulmonary disease) J44.9 Hypertension I10 Hyperlipidemia E78.5
[2024-07-14 11:35] LABS: Estimated Average Glucose 143 mg/dl; Hemoglobin A1C 6.6 % (4.5-5.6)
== END 2024-07-13 13:30 | disposition home or self-care (01) | DRG 603 ==
LOC: ED 09:43 → 3E 12:36 → INTOOBSV 12:36 → SUATTDRO 12:36 → 3E 14:32